=== PATIENT | male | born 1970 | race Caucasian/White ===

== ENCOUNTER 2021-10-07 07:24 | Emergency (ER) | payer OTHER ==
[2021-10-07 08:29] LABS: BILIRUBIN NEGATIVE (NEGATIVE); BLOOD TRACE-INTACT Ery/uL (NEGATIVE); CLARITY CLEAR (CLEAR); COLOR YELLOW (YELLOW); GLUCOSE (U) NORMAL (NORMAL); LEUKOCYTES NEGATIVE Leu/uL (NEGATIVE); NITRITE NEGATIVE (NEGATIVE); PROTEIN NEGATIVE (NEGATIVE); SPECIFIC GRAVITY <=1.005 (1.001-1.030); UROBILINOGEN 0.2 mg/dL (0.2-1.0)
[2021-10-07 08:37] LABS: URINARY WBC RARE
[2021-10-07 08:41] LABS: BASOPHIL 0.8 % (0-2); EOSINOPHIL 0.5 % (0-5); HCT 42.1 % (42.0-52.0); LYMPHOCYTE 10.6 % (15-48); MCH 28.9 pg (25.0-31.0); MCHC 33.3 g/dL (32.0-36.0); MONOCYTE 5.4 % (0-12); MPV 9.5 fL (6.0-9.5); NEUTROPHIL 82.2 % (41-80); NRBC 0; PLT 221 K/uL (150-400); RBC 4.84 M/uL (4.70-6.00); RDW 12.1 % (11.5-14.0); WBC 7.6 K/uL (4.0-10.5)
[2021-10-07 08:58] LABS: ALBUMIN 3.8 g/dL (3.4-5.0); BILIRUBIN - TOTAL 0.4 mg/dL (0.2-1.0); CREATININE 1.15 mg/dL (0.67-1.17); GLOBULIN (CALCULATION) 3.4 g/dL; POTASSIUM 4.1 mmol/L (3.5-5.1); TOTAL PROTEIN 7.2 g/dL (6.4-8.2)
[2021-10-07] MEDS ORDERED: NORCO 5-325 TA1 EACH PO (10:28)
[2021-10-07] MEDS ORDERED: ROBAXIN750 MG PO (10:28)
== END 2021-10-07 10:45 | disposition home or self-care (01) ==
LOC: FER 07:24
PROVIDERS: Emergency Medicine
DX: S16.1XXA Strain of muscle, fascia and tendon at neck level, initial encounter (principal); S30.1XXA Contusion of abdominal wall, initial encounter; V40.5XXA Car driver injured in collision with pedestrian or animal in traffic accident, initial encounter
CPT/HCPCS: 36415; 72125; 80053; 81001; 85025; Q9967